=== PATIENT | female | born 1950 | race Caucasian/White ===

== ENCOUNTER → 2018-05-10 | Outpatient (CLI) | payer BC ==
[~2018-05-10] MED LIST: ASPI-586 PO; CALC600T12 PO; LACT1CAP62 PO; POTA99TA21 PO; PRAS50CA2 PO; SIMV20TA3 PO
--- NOTE | 2018-05-15 12:06 | Diagnostic Imaging Report ---
Indication: Routine screening. Comparison is made with prior mammogram from 04/17/2017 and 04/04/2016. 2-D and 3-D bilateral screening mammography was performed with CAD. Scattered fibronodular densities are identified bilaterally. The parenchymal pattern is stable. No dominant mass or malignant appearing microcalcifications are seen. The axilla are unremarkable. Impression: BI-RADS category one No mammographic features suspicious for malignancy are identified. ACR BI-RADS Category 1: Negative. Result letter will be mailed to the patient. Note: At least 10% of breast cancer is not imaged by mammography. Dictated by: Dictated on workstation # [id number]
== END ==
LOC: RAD 11:00
PROVIDERS: ATTEND Family Medicine
DX: Z12.31 Encounter for screening mammogram for malignant neoplasm of breast (principal)
CPT/HCPCS: 77067

== ENCOUNTER → 2019-07-25 | Outpatient (CLI) | payer BC ==
[~2019-07-25] MED LIST changes: +SIMV20TA26 PO; -SIMV20TA3 PO
--- NOTE | 2019-07-25 10:33 | Diagnostic Imaging Report ---
INDICATION: Routine screening. COMPARISON is made with prior mammograms from05/10/2018 and 04/17/2017. 2-D and 3-D bilateral screening mammography was performed with CAD. Both breasts are heterogeneously dense, limiting the sensitivity of mammography. There are benign calcifications. No mass or malignant appearing microcalcifications are seen. Axillae are unremarkable. IMPRESSION: BI-RADS Category 2. No mammographic features suspicious for malignancy are identified. ACR BI-RADS Category 2: Benign findings. Result letter will be mailed to the patient. Note: At least 10% of breast cancer is not imaged by mammography. Dictated by: Dictated on workstation # [id number]
== END ==
LOC: RAD 08:38
PROVIDERS: ATTEND Nurse Practitioner Family
DX: Z12.31 Encounter for screening mammogram for malignant neoplasm of breast (principal)
CPT/HCPCS: 77067

== ENCOUNTER → 2019-09-03 | Outpatient (CLI) | payer BC ==
[2019-09-03 09:52] LABS: FREE T4 (FREE THYROXINE) 0.99 NG/DL (0.70-1.48)
--- NOTE | 2019-09-03 09:54 | Diagnostic Imaging Report ---
Right wrist at 924h. INDICATION: Injury 3 views were obtained. There is a minimally impacted fracture of the distal radial metaphysis. The fracture does appear to involve the dorsal cortex of the distal radial metaphysis. No other fracture or acute bony abnormality is appreciated. There is mild narrowing of the radiocarpal joint. There is slight widening of the scapholunate space. The possibility that there is an injury to the scapholunate ligament should be considered. If further imaging is desired, then MRI would be recommended. The soft tissues are otherwise unremarkable. IMPRESSION: 1. There is a slightly impacted essentially nondisplaced fracture of the distal radius with distal radial metaphysis. There is no acute bony abnormality noted otherwise. 2. The mild widening of the scapholunate space does raise the question of an injury to the scapholunate ligament. Additional considerations as above. These results were discussed with Tiffanie Luo. . Dictated by: Dictated on workstation # [id number]
--- NOTE | 2019-09-03 10:03 | Diagnostic Imaging Report ---
EXAMINATION: Right forearm. INDICATION: Injury. TECHNIQUE: AP and lateral views of the right forearm were obtained. FINDINGS: As noted on the right wrist exam performed in conjunction with this study, there is a minimally impacted fracture of the distal radial metaphysis. No other fracture or acute bony abnormality is appreciated. The elbow joint is fairly well maintained. The soft tissues are unremarkable. IMPRESSION: There is a minimally impacted fracture of the distal radial metaphysis. There is no acute bony abnormality noted otherwise. Dictated by: Dictated on workstation # [id number]
== END ==
LOC: RAD 09:00
PROVIDERS: ATTEND Nurse Practitioner Family
DX: E03.9 Hypothyroidism, unspecified (principal); S59.201A Unspecified physeal fracture of lower end of radius, right arm, initial encounter for closed fracture; X58.XXXA Exposure to other specified factors, initial encounter
CPT/HCPCS: 36415; 73090; 73110; 84439; 84443; 84480

== ENCOUNTER → 2019-09-19 | Outpatient (CLI) | payer BC ==
--- NOTE | 2019-09-19 11:20 | Diagnostic Imaging Report ---
INDICATION: Fracture COMPARISON with study 09/03/2019. There is mild residual dorsal angulation of the distal radius in this patient with a healing distal radial fracture. No articular offset. The distal ulna appeared intact. The scaphoid and remaining carpus intact. IMPRESSION: Some new bone formation and healing is associated with a distal radial fracture which shows mild dorsal angulation and no articular offset. Dictated by: Dictated on workstation # [id number]
== END ==
LOC: RAD 10:23
PROVIDERS: ATTEND Nurse Practitioner Family
DX: S52.501D Unspecified fracture of the lower end of right radius, subsequent encounter for closed fracture with routine healing (principal); X58.XXXD Exposure to other specified factors, subsequent encounter
CPT/HCPCS: 73110

== ENCOUNTER → 2020-07-26 | Outpatient (CLI) | payer BC, MEDICARE ==
[~2020-07-26] MED LIST changes: -CALC600T12 PO; +CLC600T PO
--- NOTE | 2020-07-26 13:10 | Diagnostic Imaging Report ---
INDICATION: Routine screening. COMPARISON: 07/25/2019 and 05/10/2018. TECHNIQUE: 2D and 3D bilateral screening mammography was performed with CAD. FINDINGS: Both breasts are heterogeneously dense, limiting the sensitivity of mammography. There is an area of irregular density in the outer portion of the right breast, best seen on the CC view at mid depth. Additional views are recommended. No definite correlate density on the MLO view is identified but is likely superiorly located. There are benign calcifications present. No malignant appearing microcalcifications are seen. The axillae are unremarkable. IMPRESSION: Right breast density. Additional views are recommended for further evaluation. ACR BI-RADS Category 0: Incomplete. (Needs additional imaging evaluation). Result letter will be mailed to the patient. Note: At least 10% of breast cancer is not imaged by mammography. Dictated by: Dictated on workstation # [id number]
== END ==
LOC: RAD 09:45
PROVIDERS: ATTEND Nurse Practitioner Family
DX: Z12.31 Encounter for screening mammogram for malignant neoplasm of breast (principal)
CPT/HCPCS: 77063; 77067

== ENCOUNTER → 2020-08-04 | Outpatient (CLI) | payer MEDICARE, OTHER ==
--- NOTE | 2020-08-04 13:51 | Diagnostic Imaging Report ---
Indication: Right breast density. Patient presents for additional views. Correlation is made with prior screening mammogram from 07/26/2020. Unilateral right 2-D and 3-D diagnostic mammography was performed. This included medial and lateral rolled CC views, spot compression CC views as well as conventional 90 degrees lateral views. Additional view fail to demonstrate a discrete mass. The area of density in the right breast appears to resolve and most likely represent superimposed fibroglandular tissue. No mass is detected. IMPRESSION: BI-RADS Category 1 Additional views fail to demonstrate a discrete mass. The patient may return to routine annual screening mammography. ACR BI-RADS Category 1: Negative. Result letter will be mailed to the patient. Note: At least 10% of breast cancer is not imaged by mammography. Dictated by: Dictated on workstation # [id number]
== END ==
LOC: RAD 12:45
PROVIDERS: ATTEND Family Medicine
DX: R92.2 Inconclusive mammogram (principal)
CPT/HCPCS: 77065; G0279

== ENCOUNTER → 2021-08-09 | Outpatient (CLI) | payer MEDICARE, OTHER ==
[~2021-08-09] MED LIST changes: +CALC600T91 PO; -CLC600T PO; -POTA99TA21 PO; +POTA99TA26 PO
--- NOTE | 2021-08-09 16:12 | Diagnostic Imaging Report ---
INDICATION: Postmenopausal screening COMPARISON: Baseline FINDINGS: AP Spine L1-L4: [BMD (g/cm2): 1.055] [T-Score: -1.2] [Z-Score: 0.2] [BMD Previous: NA] [BMD % Change: NA] LT Hip Neck: [BMD (g/cm2): 0.872] [T-Score: -1.2] [Z-Score: 0.3] LT Hip Total: [BMD (g/cm2):0.884] [T-Score:-1.0] [Z-Score: 0.3] [BMD Previous: NA] [BMD % Change: NA] RT Hip Neck: [BMD (g/cm2):0.834] [T-Score:-1.5] [Z-Score:0.0] RT Hip Total: [BMD (g/cm2):0.811] [T-score:-1.6] [Z-Score:-0.3] [BMD Previous:NA] [BMD % Change:NA] *Indicates significant change from prior examination based on 95% confidence level. World Health Organization criteria for BMD interpretation classify patients as Normal (T-score at or above -1.0), Osteopenic (T-score between -1.0 and -2.5) or Osteoporotic (T-score at or below -2.5). LIMITATIONS AND MODIFICATION: None. FRACTURE RISK (FRAX SCORE): The ten year probability of (%): Major Osteoporotic Fracture: [9.7] Hip Fracture: [1.3] IMPRESSION: 1. Osteopenia (Low bone mass). 2. Baseline examination. 3. See below National Osteoporosis Foundation guidelines on when to potentially initiate pharmacologic therapy. Based on the National Osteoporosis Foundation Guidelines, pharmacologic treatment should be initiated in any of the following, unless clinical conditions suggest otherwise: * Any patient with prior fragility fracture of the hip or vertebrae. A spine fracture indicates 5X risk for subsequent spine fracture and 2X risk for subsequent hip fracture. * Osteoporosis (T-score <-2.5). * Postmenopausal women and men age 50 and older with low bone mass/osteopenia (T-score between -1.0 and -2.5) by DXA and 10-year major osteoporotic fracture greater than 20% or a 10-year probability of hip fracture greater than 3%. These fracture risks are supplied above in the FRAX score, if applicable. * Clinician judgement and/or patient preferences may indicate treatment for people with 10-year fracture probabilities above or below these levels. Dictated by: Dictated on workstation # [id number]
--- NOTE | 2021-08-10 12:46 | Diagnostic Imaging Report ---
INDICATION: Routine screening. COMPARISON: 07/26/2020 and 07/25/2019. TECHNIQUE: 2D and 3D bilateral screening mammography was performed with CAD. FINDINGS: Scattered fibroglandular densities are identified bilaterally. The breast parenchymal density appears stable. No dominant mass or malignant-appearing microcalcifications are seen. There are scattered benign calcifications bilaterally. The axillae are unremarkable. IMPRESSION: No mammographic features suspicious for malignancy are identified. ACR BI-RADS Category 2: Benign findings. Result letter will be mailed to the patient. Note: At least 10% of breast cancer is not imaged by mammography. Dictated by: Dictated on workstation # [id number]
== END ==
LOC: RAD 13:45
PROVIDERS: ATTEND Family Medicine
DX: Z12.31 Encounter for screening mammogram for malignant neoplasm of breast (principal); M85.89 Other specified disorders of bone density and structure, multiple sites
CPT/HCPCS: 77063; 77067; 77080

== ENCOUNTER → 2022-08-25 | Outpatient (CLI) | payer MEDICARE ==
--- NOTE | 2022-08-25 16:19 | Diagnostic Imaging Report ---
Indication: Routine screening. Comparison is made with prior mammograms 08/09/2021 and 07/26/2020. 2-D and 3-D bilateral screening mammography was performed with CAD. Both breasts are heterogeneously dense, limiting the sensitivity of mammography. There are benign calcifications in both breasts. No mass or malignant-appearing microcalcifications are identified. Axillae are unremarkable. IMPRESSION: BI-RADS Category 2 No mammographic features suspicious for malignancy are identified. ACR BI-RADS Category 2: Benign findings. Result letter will be mailed to the patient. Note: At least 10% of breast cancer is not imaged by mammography. Dictated by: Dictated on workstation # [id number]
== END ==
LOC: RAD 09:46
PROVIDERS: ATTEND Family Medicine
DX: Z12.31 Encounter for screening mammogram for malignant neoplasm of breast (principal)
CPT/HCPCS: 77063; 77067

== ENCOUNTER → 2022-11-09 | Outpatient (CLI) | payer MEDICARE ==
--- NOTE | 2022-11-09 16:16 | Diagnostic Imaging Report ---
Indication: Prior history of right shoulder fracture. Time of Exam: 12:48 PM No prior studies are available for comparison. Glenohumeral and acromioclavicular alignment are normal. There is a large bony excrescence arising inferiorly from the humeral head and neck junction. No fractures are seen. Acromiohumeral space is normal. There is no dislocation. Impression: There is a large bony excrescence arising from the inferior aspect of the humeral head and neck junction on the medial side. This could represent a large osteochondroma versus posttraumatic deformity. No acute fracture is detected. Dictated by: Dictated on workstation # [id number]
== END ==
LOC: RAD 12:40
PROVIDERS: ATTEND Nurse Practitioner Family
DX: M25.811 Other specified joint disorders, right shoulder (principal)
CPT/HCPCS: 73030